=== PATIENT | female | born 1945 | race Caucasian/White ===

== ENCOUNTER 2018-04-24 15:12 | Emergency (ER) | payer MEDICARE, OTHER ==
[~2018-04-24] VITALS: Ht 157.5 cm; Wt 55.0 kg
[2018-04-24 15:19] VITALS: Ht 157.5 cm; Wt 55.0 kg
--- NOTE | 2018-04-24 17:58 | ERD ---
ER Documentation Chief Complaint Chief Complaint Complains of abdominal pain HPI This is a 72-year-old female with a prior history of dementia who presents for evaluation of abdominal pain. Per EMS report, the patient had numerous, as many as 40 visits at an outside hospital, her last visit was at [facility] on April 23, where she was evaluated for abdominal pain, which showed evidence of diverticulosis, query enteritis versus diverticulitis, patient had been discharged home. She has a history of dementia, she presents alone without family. ROS All systems reviewed and are negative except as per history of present illness. Medications Home Meds Reported Medications Propranolol Hcl* (Propranolol Hcl*) 10 Mg Tablet, 10 MG PO BID, TAB 04/24/18 Rosuvastatin Calcium* (Crestor*) 10 Mg Tablet, 10 MG PO QHS, #30 TAB 04/24/18 Aspirin (Low Dose Aspirin) 81 Mg Tablet.dr, 81 MG PO DAILY, #30 TAB 04/24/18 Levothyroxine Sodium* (Levoxyl*) 50 Mcg Tablet, 50 MCG PO BEFORE BREAKFAST, #30 TAB 04/24/18 Mirtazapine* (Mirtazapine*) 7.5 Mg Tablet, 7.5 MG PO HS, TAB 04/24/18 Gabapentin* (Gabapentin*) 300 Mg Capsule, 300 MG PO QHS, #60 CAP 04/24/18 Omeprazole* (Omeprazole*) 20 Mg Capsule.dr, 20 MG PO DAILY, #30 CAP 04/24/18 Escitalopram Oxalate* (Lexapro*) 5 Mg Tablet, 5 MG PO DAILY, #30 TAB 04/24/18 Sertraline Hcl* (Zoloft*) 100 Mg Tablet, 100 MG PO DAILY, #30 TAB 04/24/18 Lorazepam* (Lorazepam*) 0.5 Mg Tablet, 0.5 MG PO DAILY PRN for ANXIETY, TAB 04/24/18 Allergies Allergies: Coded Allergies: No Known Allergy (Unverified , 04/24/18) PMhx/Soc Medical and Surgical Hx: Unable to obtain Hx Alcohol Use: No Hx Substance Use: No Hx Tobacco Use: No Smoking Status: Never smoker Physical Exam Vitals Vital Signs Date Temp Pulse Resp B/P (MAP) Pulse Ox O2 O2 Flow FiO2 Time Delivery Rate 04/24/18 68 19 129/109 99 Room Air 22:01 (116) 04/24/18 99.5 83 20 124/82 98 15:19 (96) Physical Exam Const: No acute distress Head: Atraumatic Eyes: Normal Conjunctiva ENT: Normal External Ears, Nose and Mouth. Neck: Full range of motion. No meningismus. Resp: Clear to auscultation bilaterally Cardio: Regular rate and rhythm, no murmurs Abd: Soft, non tender, non distended. Normal bowel sounds Skin: No petechiae or rashes Back: No midline or flank tenderness Ext: No cyanosis, or edema Neur: Awake and alert Psych: Normal Mood and Affect Result Diagram: 04/24/18 1735 04/24/18 1735 Results 24 hrs Laboratory Tests Test 04/24/18 17:35 04/24/18 17:50 White Blood Count 7.4 10^3/ul Red Blood Count 4.14 10^6/ul Hemoglobin 12.2 g/dl Hematocrit 36.9 % Mean Corpuscular Volume 89.1 fl Mean Corpuscular Hemoglobin 29.5 pg Mean Corpuscular Hemoglobin Concent 33.1 g/dl Red Cell Distribution Width 13.8 % Platelet Count 287 10^3/UL Mean Platelet Volume 9.4 fl Immature Granulocytes % 0.100 % Neutrophils % 67.2 % Lymphocytes % 23.0 % Monocytes % 8.5 % Eosinophils % 0.8 % Basophils % 0.4 % Nucleated Red Blood Cells % 0.0 /100WBC Immature Granulocytes # 0.010 10^3/ul Neutrophils # 5.0 10^3/ul Lymphocytes # 1.7 10^3/ul Monocytes # 0.6 10^3/ul Eosinophils # 0.1 10^3/ul Basophils # 0.0 10^3/ul Nucleated Red Blood Cells # 0.0 10^3/ul Sodium Level 142 mmol/L Potassium Level 3.9 mmol/L Chloride Level 99 mmol/L Carbon Dioxide Level 28 mmol/L Anion Gap 15 Blood Urea Nitrogen 13 mg/dl Creatinine 0.54 mg/dl Est Glomerular Filtrat Rate mL/min mL/min Glucose Level 100 mg/dl Calcium Level 10.0 mg/dl Total Bilirubin 0.3 mg/dl Direct Bilirubin 0.00 mg/dl Indirect Bilirubin 0.3 mg/dl Aspartate Amino Transf (AST/SGOT) 27 IU/L Alanine Aminotransferase (ALT/SGPT) 24 IU/L Alkaline Phosphatase 58 IU/L Troponin I < 0.012 ng/ml Total Protein 7.8 g/dl Albumin 4.6 g/dl Globulin 3.20 g/dl Albumin/Globulin Ratio 1.43 Lipase 169 U/L Urine Color YELLOW Urine Clarity CLOUDY Urine pH 7.0 Urine Specific Jal 1.047 Urine Ketones TRACE mg/dL Urine Nitrite NEGATIVE mg/dL Urine Bilirubin NEGATIVE mg/dL Urine Urobilinogen NEGATIVE mg/dL Urine Leukocyte Esterase TRACE Hannah/ul Urine Microscopic RBC 0 /HPF Urine Microscopic WBC 0 /HPF Urine Squamous Epithelial Cells FEW /HPF Urine Amorphous Crystals FEW /HPF Urine Hemoglobin NEGATIVE mg/dL Urine Glucose NEGATIVE mg/dL Urine Total Protein NEGATIVE mg/dl Current Medications Medications Dose Sig/Dayne Start Time Status Last (Trade) Ordered Route PRN Stop Time Admin Dose Reason Admin Morphine 2 mg ONCE STAT 04/24/18 DC 04/24/18 Sulfate IV 19:17 19:58 (morphine) 04/24/18 19:18 Ondansetron 4 mg ONCE STAT 04/24/18 DC 04/24/18 HCl (Zofran IV 19:17 19:58 Inj) 04/24/18 19:18 Sodium 1,000 ml @ Q1H ONCE 04/24/18 DC 04/24/18 Chloride 1,000 mls/hr IV 19:30 19:58 04/24/18 20:29 Procedures/MDM 72-year-old female presents for evaluation of abdominal pain, this pain has been recurrent, she has multiple visits to outside hospital for the same pain, her CT abdomen pelvis today showed no acute findings, labs were overall unremarkable, given her continued pain, I had plan for admission for observation and pain control, however the patient did not wish to be admitted, she signed out AGAINST MEDICAL ADVICE, she understood the risks of leaving the hospital, and currently worsening pain, and permanent disability, she endorsed a plan of care, stating that she was to go home and felt safe, and will take care of her dog, at discharge she was in no acute distress per EKG: Rate/Rhythm: Normal Sinus Rhythm QRS, ST, T-waves: No changes consistent w/ acute ischemia Impression: No evidence of ischemia or arrhythmia Departure Diagnosis: Primary Impression: Abdominal pain Abdominal location: generalized Qualified Codes: R10.84 - Generalized abdominal pain Condition: Stable WILLIAM WASHINGTON MD Apr 24, 2018 17:58
[2018-04-24] MEDS ORDERED: LORA0.5T PO (18:03)
[2018-04-24] MEDS ORDERED: ESCI5TAB PO (18:03)
[2018-04-24] MEDS ORDERED: SERT100T PO (18:03)
[2018-04-24] MEDS ORDERED: OMEP20CA16 PO (18:04)
[2018-04-24] MEDS ORDERED: GABA300C16 PO (18:04)
[2018-04-24] MEDS ORDERED: MIRT7.5T8 PO (18:05)
[2018-04-24] MEDS ORDERED: LEVO50TA71 PO (18:05)
[2018-04-24] MEDS ORDERED: ASPI81TA52 PO (18:05)
[2018-04-24] MEDS ORDERED: ROSU10TA55 PO (18:06)
[2018-04-24] MEDS ORDERED: PROP10TA6 PO (18:07)
[2018-04-24] MEDS ORDERED: ONDANSETRON 4 MG INJ IV STA (19:17)
[2018-04-24] MEDS ORDERED: morphine 2 MG INJ IV STA (19:17)
[2018-04-24] MEDS ORDERED: SOD CHLORIDE 0.9% 1,000 ML IV ONE (19:30)
[2018-04-24 22:01] VITALS: BP 129/109; PULSE 68; RESP 19
== END 2018-04-24 22:10 | disposition left against medical advice (07) ==
LOC: E/R 15:12 → CANBEDREQ 04-25 19:40
DX: R10.84 Generalized abdominal pain (principal); Z79.82 Long term (current) use of aspirin
CPT/HCPCS: 36415; 71045; 74176; 80053; 81001; 83690; 84484; 85025; 93005; 96374; 96375; 99285; J2270; J2405; J7030